=== PATIENT | male | born 1950 ===

== ENCOUNTER 2017-09-19 12:49 | Inpatient (IN) | payer MEDICARE ==
[2017-09-19] MEDS ORDERED: Sodium Chloride 0.9% 1,000 ML IV STA (13:28)
[2017-09-19] MEDS ORDERED: Iohexol 240 (50 ml) PO ONE (13:28)
[2017-09-19 13:48] LABS: BASO # 0.1 K/uL (0.0-0.2); BASO % 0.5 % (0.0-2.0); EOS % 0.1 % (0.0-4.0); HEMATOCRIT 42.3 % (35.0-51.0); LYMPH # 1.6 K/uL (1.0-4.3); LYMPH % 9.3 % (20.0-40.0); MEAN CORPUSCULAR HEMOGLOBIN 29.9 pg (27.0-31.0); MEAN CORPUSCULAR HGB CONC 32.5 g/dL (33.0-37.0); MEAN PLATELET VOLUME 8.2 fl (7.2-11.7); MONO # 0.6 K/uL (0.0-0.8); MONO % 3.6 % (0.0-10.0); NEUT # 14.7 K/uL (1.8-7.0); NEUT % 86.5 % (50.0-75.0); PLATELET COUNT 238 K/uL (130-400); RED CELL DISTRIBUTION WIDTH 14.5 % (11.5-14.5)
[2017-09-19] MEDS ORDERED: Iohexol 240 (50 ml) ONE (13:48)
--- NOTE | 2017-09-19 13:51 | ED PDOC ---
HPI: Abdomen Time Seen by Provider: 09/19/17 13:13 Chief Complaint (Nursing): Abdominal Pain Chief Complaint (Provider): Bloody stool History Per: Patient History/Exam Limitations: no limitations Onset/Duration Of Symptoms: Days (Yesterday) Current Symptoms Are (Timing): Still Present Additional Complaint(s): Several bloody stool movements. Abd pain diffuse. Black stool. Has light- headedness. No weakness, chest pain, dyspnea, fever. No back pain. No numbness, tingles. Past Medical History Reviewed: Nursing Documentation, Vital Signs Vital Signs: Last Vital Signs Temp 98.1 F 09/19/17 12:56 Pulse 119 H 09/19/17 12:56 Resp 16 09/19/17 12:56 BP 136/81 09/19/17 12:56 Pulse Ox 99 09/19/17 13:52 - Medical History PMH: HTN, Hypercholesterolemia - Surgical History Surgical History: No Surg Hx - Family History Family History: States: Unknown Family Hx - Social History Current smoker - smoking cessation education provided: No Alcohol: None Drugs: Denies - Home Medications Home Medications: Ambulatory Orders Medication Instructions Recorded Aspirin [Ecotrin] 81 mg PO DAILY 09/19/17 Atorvastatin [Lipitor] 10 mg PO HS 09/19/17 Lisinopril [Zestril] 10 mg PO DAILY 09/19/17 - Allergies Allergies/Adverse Reactions: Allergies Allergy/AdvReac Type Severity Reaction Status Date / Time No Known Allergies Allergy Verified 09/19/17 12:52 Review of Systems ROS Statement: Except As Marked, All Systems Reviewed And Found Negative Gastrointestinal: Positive for: Abdominal Pain, Melena, Hematochezia Physical Exam - Reviewed Nursing Documentation Reviewed: Yes Vital Signs Reviewed: Yes - Physical Exam Appears: Positive for: Non-toxic, No Acute Distress Head Exam: Positive for: ATRAUMATIC, NORMAL INSPECTION, NORMOCEPHALIC Skin: Positive for: Normal Color, Warm, DRY Eye Exam: Positive for: EOMI, Normal appearance, PERRL ENT: Positive for: Normal ENT Inspection Neck: Positive for: Normal, Painless ROM Cardiovascular/Chest: Positive for: Regular Rate, Rhythm Respiratory: Positive for: CNT, Normal Breath Sounds Gastrointestinal/Abdominal: Positive for: Normal Exam, Bowel Sounds, Soft. Negative for: Tenderness Back: Positive for: Normal Inspection. Negative for: L CVA Tenderness, R CVA Tenderness Extremity: Positive for: Normal ROM. Negative for: Tenderness, Pedal Edema Neurologic/Psych: Positive for: Alert, Oriented - Laboratory Results Result Diagrams: 09/19/17 13:37 09/19/17 13:37 Interpretation Of Abn Labs: hemocult pos and 17 wbc - ECG O2 Sat by Pulse Oximetry: 99 Pulse Ox Interpretation: Normal - Progress ED Course And Treament: 1454: Stable. Dr. Bruce to take over care for ct fu. Re-eval. Disposition - Clinical Impression Clinical Impression: Abdominal pain, Bloody stool - Patient ED Disposition Is Patient to be Admitted: Transfer of Care - Disposition Disposition Time: 14:58 Condition: FAIR Patient Signed Over To: Jailyn Bruce
[2017-09-19 14:15] LABS: ALB/GLOB RATIO 1.3 (1.0-2.1); BILIRUBIN,TOTAL 0.8 mg/dl (0.2-1.3); CALCIUM 9.1 mg/dL (8.4-10.2); CARBON DIOXIDE 19 mmol/L (22-30); CHLORIDE 106 mmol/L (98-107); GFR AFRICAN-AMERICAN > 60; GLUCOSE,RANDOM 130 mg/dL (75-110); SODIUM 137 mmol/l (132-148); TOTAL PROTEIN 7.5 G/DL (6.3-8.2)
[2017-09-19 14:16] LABS: ALKALINE PHOSPHATASE 61 U/L (38-126); ALT/SGPT 44 U/L (21-72); AST/SGOT 27 U/L (17-59); BLOOD UREA NITROGEN 34 mg/dl (9-20); POTASSIUM 4.4 MMOL/L (3.6-5.0)
[2017-09-19 14:34] LABS: PARTIAL THROMBOPLASTIN TIME 28.1 Seconds (25.6-37.1)
[2017-09-19 15:21] LABS: NEUTROPHIL 84 % (42-75); TOTAL CELLS COUNTED 100
[2017-09-19 15:23] LABS: LARGE PLATELETS PRESENT
[2017-09-19] MEDS ORDERED: Iohexol 300 100 ML IJ ONE (15:43)
--- NOTE | 2017-09-19 17:10 | CT ---
PROCEDURE: CT Abdomen and Pelvis with contrast HISTORY: Blood in stool, abdominal pain COMPARISON: None. TECHNIQUE: Contrast dose: 90 cc Omnipaque 300 Radiation dose: Total exam DLP = 782.12 mGy-cm. This CT exam was performed using one or more of the following dose reduction techniques: Automated exposure control, adjustment of the mA and/or kV according to patient size, and/or use of iterative reconstruction technique. FINDINGS: LOWER THORAX: 03/16/2011 CT thorax abdomen and pelvis LIVER: Unremarkable. No gross lesion or ductal dilatation. GALLBLADDER AND BILE DUCTS: Unremarkable. PANCREAS: Unremarkable. No gross lesion or ductal dilatation. SPLEEN: Unremarkable. Incidental finding(s): Small accessory splenule. ADRENALS: Unremarkable. No mass. KIDNEYS AND URETERS: Unremarkable. No hydronephrosis. No solid mass. VASCULATURE: Unremarkable. No aortic aneurysm. BOWEL: Thickening of the wall of the sigmoid and rectum consistent with colitis/proctitis. More proximally the descending colon, transverse and ascending colon are unaffected. APPENDIX: Normal appendix. PERITONEUM: Unremarkable. No free fluid. No free air. LYMPH NODES: Unremarkable. No enlarged lymph nodes. BLADDER: Unremarkable. REPRODUCTIVE: Unremarkable. BONES: No acute fracture. OTHER FINDINGS: Right-sided inguinal hernia containing a nondistended loops of small bowel. No evidence of incarceration or proximal obstruction. IMPRESSION: Findings consistent with colitis/prostatitis confined to the sigmoid and rectum. Additional benign and/or incidental findings described above.
--- NOTE | 2017-09-19 17:21 | ED PDOC ---
- Laboratory Results Result Diagrams: 09/19/17 13:37 09/19/17 13:37 - ECG O2 Sat by Pulse Oximetry: 99 Medical Decision Making Medical Decision Making: received patient from Dr. Leonardo who is here because of abdominal pain. Patient has hemoccult positive stool. WBC 17K. CT shows colitis. Will admit. Start Zosyn. Disposition Doctor Will See Patient In The: Hospital - Clinical Impression Clinical Impression: Abdominal pain, Bloody stool, Colitis - POA Present On Arrival: None - Disposition Disposition: Routine/Home Disposition Time: 17:21 Condition: FAIR
--- NOTE | 2017-09-19 19:24 | CP.PCM.HP ---
Addendum entered and electronically signed by Felecia Hall MD 09/20/17 07: 18: CBC noted: HG now 10.8. BP has improved after 1L bolus c/w IVF. Transfer to telemetry. Addendum entered and electronically signed by Felecia Hall MD 09/20/17 05: 25: I was called to evaluate the patient by RN at 05:06 due to suspected fall and hypotension. When I arrived the patient was in bed, in trendelenburg : BP 111 systolic, HR 90s He stood up to go to bathroom, had some dizziness but proceeded to go to restroom. He then felt like he was going to fall so he sat down on the floor. HE did not hit his head. No LOC. He did have another large bowel movement that he says was black, and had foul odor. While in bed he continues to complain of dizziness and mild headache, although dizziness has improved. He denies chest pain, palpitations or dyspnea. 1L bolus of NS ordered. Morning labs have been drawn, awaiting results. Fall precautions given to patient, ambulate with assistance only. Original Note: History of Present Illness - History of Present Illness History of Present Illness: 67 year old male with PMH of HTN presented to ED with complaint of dark stools that began yesterday. He had 3 BM yesterday, one today, dark and formed stool, No bright red blood per rectum. He had one bowel movement today, this morning. He felt chills, weakness and dizziness earlier in the day. AT present feels weak , but dizziness has resolved. He states his colonoscopy was done 3 years ago, in [place]. States he has had URI, congestion and cough, no sore throat, rhinorrhea or ear pain. He was able to tolerate meal earlier today, denies any nausea or vomiting. Has reflux that has been on and off for past few months. Denies hx of HLD, but was placed on statin prophylactically. PMD: Dr. Saldana, last clinic appt. 09/16/17 PMH: HTN, mycosis fungoides-s/p treatment years ago Medications: Aspirin 81mg, Lisinopril 10mg, Atorvastatin 10mg Allergies: NKDA Surgical Hx: umbilical hernia repair Social : no tobacco, etoh, illicit drug use Family Hx: Mother - CVA aged 90, father alive 93 y/o, HTN, renal disease Patient is Full Code. Patient would like his brother to be contacted for medical decisions: Jose Manuel Caballero: [phone], lives in [facility]- opthalmologist. Daughter: Shagufta Sun : [phone], lives in [place]. Cousin: Ana Cristina Dennison "[phone] lives in [place]. Present on Admission - Present on Admission Any Indicators Present on Admission: No Review of Systems - Constitutional Constitutional: Chills, Weakness. absent: Anorexia, Fever, Headache - EENT Eyes: absent: Change in Vision Nose/Mouth/Throat: Nasal Congestion. absent: Nasal Discharge, Sore Throat - Cardiovascular Cardiovascular: absent: Chest Pain, Dyspnea, Palpitations, Pedal Edema, Syncope - Respiratory Respiratory: absent: Cough, Dyspnea - Gastrointestinal Gastrointestinal: Abdominal Pain, Change in Stool Character. absent: Constipation, Diarrhea, Fecal Incontinence, Nausea, Vomiting - Genitourinary Genitourinary: absent: Change in Urinary Stream, Dysuria, Hematuria - Musculoskeletal Musculoskeletal: absent: Back Pain - Integumentary Integumentary: absent: Rash - Neurological Neurological: Weakness. absent: Numbness, Tingling Past Patient History - Infectious Disease Hx of Infectious Diseases: None - Past Social History Smoking Status: Never Smoked Alcohol: None Drugs: Denies - CARDIAC Hx Hypercholesterolemia: No Hx Hypertension: Yes - PSYCHIATRIC Hx Substance Use: No - SURGICAL HISTORY Hx Surgeries: No - ANESTHESIA Hx Anesthesia: No Meds Allergies/Adverse Reactions: Allergies Allergy/AdvReac Type Severity Reaction Status Date / Time No Known Allergies Allergy Verified 09/19/17 12:52 Physical Exam - Constitutional Appears: Non-toxic, No Acute Distress - Head Exam Head Exam: ATRAUMATIC, NORMAL INSPECTION, NORMOCEPHALIC - Eye Exam Eye Exam: EOMI, Normal appearance, PERRL - ENT Exam ENT Exam: Mucous Membranes Moist, Normal Exam, TM's Normal Bilaterally - Neck Exam Neck exam: Positive for: Full Rom, Normal Inspection - Respiratory Exam Respiratory Exam: Clear to Auscultation Bilateral, NORMAL BREATHING PATTERN. absent: Chest Wall Tenderness, Decreased Breath Sounds, Rales, Rhonchi, Wheezes , Respiratory Distress - Cardiovascular Exam Cardiovascular Exam: REGULAR RHYTHM, +S1, +S2. absent: Bradycardia, Tachycardia , Diastolic murmur, Systolic Murmur - GI/Abdominal Exam GI & Abdominal Exam: Diminished Bowel Sounds, Soft. absent: Distended, Guarding , Mass, Rigid, Tenderness - Rectal Exam Rectal Exam: Deferred - Extremities Exam Extremities exam: Positive for: normal inspection. Negative for: pedal edema - Neurological Exam Neurological exam: Alert, CN II-XII Intact, Normal Gait, Oriented x3 - Psychiatric Exam Psychiatric exam: Normal Affect, Normal Mood - Skin Skin Exam: Dry, Intact, Normal Color, Warm Results - Vital Signs Recent Vital Signs: Last Vital Signs Temp 99.5 F 09/19/17 17:40 Pulse 110 H 09/19/17 17:40 Resp 18 09/19/17 17:40 BP 136/75 09/19/17 17:40 Pulse Ox 99 09/19/17 17:40 - Labs Result Diagrams: 09/19/17 13:37 09/19/17 13:37 Labs: Laboratory Results - last 24 hr 09/19/17 09/19/17 09/19/17 13:37 13:37 13:37 WBC 17.0 H D RBC 4.60 Hgb 13.7 Hct 42.3 MCV 92.0 MCH 29.9 MCHC 32.5 L RDW 14.5 Plt Count 238 MPV 8.2 Neut % (Auto) 86.5 H Lymph % (Auto) 9.3 L [place] % (Auto) 3.6 Eos % (Auto) 0.1 Baso % (Auto) 0.5 Neut # 14.7 H Lymph # 1.6 [place] # 0.6 Eos # 0.0 Baso # 0.1 Neutrophils % (Manual) 84 H Lymphocytes % (Manual) 12 L Monocytes % (Manual) 4 Platelet Estimate Normal Large Platelets Present Poikilocytosis (manual Slight Anisocytosis (manual) Slight Microcytosis (manual) Slight Ovalocytes Slight [place] Cells Slight PT INR APTT Sodium 137 Potassium 4.4 Chloride 106 Carbon Dioxide 19 L Anion Gap 16 BUN 34 H Creatinine 1.0 Est GFR ( Amer) > 60 Est GFR (Non-Af Amer) > 60 Random Glucose 130 H Calcium 9.1 Total Bilirubin 0.8 AST 27 ALT 44 Alkaline Phosphatase 61 Total Protein 7.5 Albumin 4.2 Globulin 3.3 Albumin/Globulin Ratio 1.3 Stool Occult Blood Blood Type O POSITIVE Antibody Screen Negative BBK History Checked No verified bt 09/19/17 09/19/17 13:37 13:43 WBC RBC Hgb Hct MCV MCH MCHC RDW Plt Count MPV Neut % (Auto) Lymph % (Auto) [place] % (Auto) Eos % (Auto) Baso % (Auto) Neut # Lymph # [place] # Eos # Baso # Neutrophils % (Manual) Lymphocytes % (Manual) Monocytes % (Manual) Platelet Estimate Large Platelets Poikilocytosis (manual Anisocytosis (manual) Microcytosis (manual) Ovalocytes [place] Cells PT 12.8 INR 1.2 APTT 28.1 Sodium Potassium Chloride Carbon Dioxide Anion Gap BUN Creatinine Est GFR ( Amer) Est GFR (Non-Af Amer) Random Glucose Calcium Total Bilirubin AST ALT Alkaline Phosphatase Total Protein Albumin Globulin Albumin/Globulin Ratio Stool Occult Blood Positive H Blood Type Antibody Screen BBK History Checked - Imaging and Cardiology CT scan - abdomen Status: Report reviewed by me Additional comment: CT A/P: FINDINGS: LOWER THORAX: 03/16/2011 CT thorax abdomen and pelvis LIVER: Unremarkable. No gross lesion or ductal dilatation. GALLBLADDER AND BILE DUCTS: Unremarkable. PANCREAS: Unremarkable. No gross lesion or ductal dilatation. SPLEEN: Unremarkable. Incidental finding(s): Small accessory splenule. ADRENALS: Unremarkable. No mass. KIDNEYS AND URETERS: Unremarkable. No hydronephrosis. No solid mass. VASCULATURE: Unremarkable. No aortic aneurysm. BOWEL: Thickening of the wall of the sigmoid and rectum consistent with colitis/ proctitis. More proximally the descending colon, transverse and ascending colon are unaffected. APPENDIX: Normal appendix. PERITONEUM: Unremarkable. No free fluid. No free air. LYMPH NODES: Unremarkable. No enlarged lymph nodes. BLADDER: Unremarkable. REPRODUCTIVE: Unremarkable. BONES: No acute fracture. OTHER FINDINGS: Right-sided inguinal hernia containing a nondistended loops of small bowel. No evidence of incarceration or proximal obstruction. IMPRESSION: Findings consistent with colitis/prostatitis confined to the sigmoid and rectum. Additional benign and/or incidental findings described above. Assessment & Plan (1) Colitis Assessment and Plan: 67 year old male with hx of HTN, presented with c/o dark bowel movements, abdominal pain and weakness admitted for colitis w/ +FOBT,. Pt w/ possible upper GI bleed. Pt is hemodynamically stable. He is afebrile, BP is WNL, with tachycardia, HR 119. Tachycardia likely 2' to dehydration, given his Hg 13.7, not 2' to anemia or pain. Will repeat CBC in AM Start clear liquid diet, c/w IVF Start Cipro/Flagyl, bacid GI consult Status: Acute (2) HTN (hypertension) Assessment and Plan: controlled w/ lisinopril 10mg Status: Acute (3) DVT prophylaxis Assessment and Plan: scds due to +FOBT Status: Acute
[2017-09-19] MEDS ORDERED: Lactated Ringer's 1,000 ML IV SCH (19:45)
[2017-09-19] MEDS ORDERED: metroNIDAZOLE 500mg/100ml NS 100 ML IVPB ONE (20:43)
[2017-09-19] MEDS: metroNIDAZOLE 500mg/100ml NS 100 ML IVPB SCH (20:44)
[2017-09-19] MEDS: Lactobacillus Acidophilus 500 MU Cap PO SCH (21:26)
[2017-09-19] MEDS: Ciprofloxacin 400mg/200ml D5W 400 MG/200 ML BAG IVPB SCH (22:08)
[2017-09-20] MEDS: metroNIDAZOLE 500mg/100ml NS 100 ML IVPB SCH ×3 (04:05→20:30)
[2017-09-20] MEDS ORDERED: Sodium Chloride 0.9% 1,000 ML IV SCH (05:30)
[2017-09-20 06:57] LABS: BASO # 0.1 K/uL (0.0-0.2); BASO % 0.5 % (0.0-2.0); EOS # 0.1 K/uL (0.0-0.7); EOS % 0.6 % (0.0-4.0); HEMATOCRIT 31.1 % (35.0-51.0); LYMPH # 4.2 K/uL (1.0-4.3); MEAN CELL VOLUME 90.1 fl (80.0-94.0); MEAN CORPUSCULAR HEMOGLOBIN 31.3 pg (27.0-31.0); MEAN CORPUSCULAR HGB CONC 34.7 g/dL (33.0-37.0); MEAN PLATELET VOLUME 8.8 fl (7.2-11.7); MONO # 0.9 K/uL (0.0-0.8); MONO % 7.4 % (0.0-10.0); NEUT # 6.8 K/uL (1.8-7.0); NEUT % 56.5 % (50.0-75.0); RED CELL DISTRIBUTION WIDTH 14.1 % (11.5-14.5)
[2017-09-20 08:04] LABS: BLOOD UREA NITROGEN 31 mg/dl (9-20); CALCIUM 8.2 mg/dL (8.4-10.2); CARBON DIOXIDE 24 mmol/L (22-30); CHLORIDE 106 mmol/L (98-107); GFR AFRICAN-AMERICAN > 60; GLUCOSE,RANDOM 96 mg/dL (75-110); POTASSIUM 3.5 MMOL/L (3.6-5.0); SODIUM 139 mmol/l (132-148)
[2017-09-20] MEDS: Ciprofloxacin 400mg/200ml D5W 400 MG/200 ML BAG IVPB SCH ×2 (09:16→21:44)
[2017-09-20] MEDS: Lactobacillus Acidophilus 500 MU Cap PO SCH ×2 (09:17→16:03)
--- NOTE | 2017-09-20 11:18 | CP.PCM.CON ---
<Mena Merchant - Last Filed: 09/20/17 11:14> History of Present Illness - History of Present Illness History of Present Illness: Gastroenterology Fellow/PGY5 Consult Note 67 year old male with history of Hypertension presenting with abdominal pain and diarrhea. Patient notes bilateral lower abdominal pain and daily three episodes of dark watery stools. Associated subjective fever. Denies nausea, vomiting, hematemesis, constipation, melena, hematochezia, recent travel, recent antibiotics, or sick contacts. Prior colonoscopy three years ago endorsed to be normal. Family- denies stomach cancer, colon cancer Social- denies tobacco, alcohol, illicit drug use Surgery- umbilical hernia repair Review of Systems - Review of Systems Review of Systems: 12-point review of systems negative except for as above Past Patient History - Infectious Disease Hx of Infectious Diseases: None - Past Medical History & Family History Past Medical History?: Yes - Past Social History Smoking Status: Never Smoked Alcohol: None Drugs: Denies - CARDIAC Hx Hypercholesterolemia: No Hx Hypertension: Yes - PULMONARY Hx Respiratory Disorders: No - NEUROLOGICAL Hx Neurological Disorder: No - HEENT Hx HEENT Problems: No - RENAL Hx Chronic Kidney Disease: No - ENDOCRINE/METABOLIC Hx Endocrine Disorders: No - HEMATOLOGICAL/ONCOLOGICAL Hx Blood Disorders: No Hx AIDS: No Hx Human Immunodeficiency Virus (HIV): No - INTEGUMENTARY Hx Dermatological Problems: No - MUSCULOSKELETAL/RHEUMATOLOGICAL Hx Musculoskeletal Disorders: No Hx Falls: No - GASTROINTESTINAL Hx Gastrointestinal Disorders: No - GENITOURINARY/GYNECOLOGICAL Hx Genitourinary Disorders: No - PSYCHIATRIC Hx Substance Use: No - SURGICAL HISTORY Hx Surgeries: No - ANESTHESIA Hx Anesthesia: No Meds Allergies/Adverse Reactions: Allergies Allergy/AdvReac Type Severity Reaction Status Date / Time No Known Allergies Allergy Verified 09/19/17 12:52 - Medications Medications: Current Medications Atorvastatin Calcium (Lipitor) 10 mg PO HS JESSIE Ciprofloxacin (Cipro 400mg/200ml Dsw) 400 mg in 200 mls @ 200 mls/hr IVPB Q12 JESSIE PRN Reason: Protocol Last Admin: 09/20/17 09:16 Dose: 200 mls/hr Metronidazole (Flagyl 500mg/100ml Ns) 100 mls @ 100 mls/hr IVPB Q8H JESSIE PRN Reason: Protocol Last Admin: 09/20/17 04:05 Dose: 100 mls/hr Potassium Chloride 20 meq/ (Sodium Chloride) 1,010 mls @ 125 mls/hr IV .Q8H5M [facility] Stop: 09/21/17 05:21 Last Admin: 09/20/17 06:34 Dose: 125 mls/hr Lactobacillus Acidophilus (Bacid Acidophilus) 1 cap PO BID [facility] Last Admin: 09/20/17 09:17 Dose: 1 cap Lisinopril (Zestril) 10 mg PO DAILY [facility] Pantoprazole Sodium (Protonix Inj) 40 mg IVP Q12 [facility] Last Admin: 09/20/17 09:19 Dose: 40 mg Physical Exam - Constitutional Appears: Non-toxic, No Acute Distress - Head Exam Head Exam: ATRAUMATIC, NORMOCEPHALIC - Eye Exam Eye Exam: EOMI, PERRL Pupil Exam: PERRL. absent: Miosis, Mydriatic - ENT Exam ENT Exam: Mucous Membranes Moist, Normal Oropharynx - Neck Exam Neck exam: Positive for: Full Rom, Normal Inspection - Respiratory Exam Respiratory Exam: Clear to Auscultation Bilateral. absent: Rales, Rhonchi, Wheezes - Cardiovascular Exam Cardiovascular Exam: RRR, +S1, +S2. absent: Gallop, Rubs - GI/Abdominal Exam GI & Abdominal Exam: Normal Bowel Sounds, Soft, Tenderness. absent: Distended, Firm, Guarding, Organomegaly, Rebound, Rigid Additional comments: mid to LLQ tenderness to palpation - Extremities Exam Extremities exam: Positive for: normal inspection. Negative for: pedal edema - Neurological Exam Neurological exam: Alert - Psychiatric Exam Psychiatric exam: Normal Affect, Normal Mood - Skin Skin Exam: Dry, Intact, Normal Color, Warm Results - Vital Signs Recent Vital Signs: Last Vital Signs Temp 97.6 F 09/20/17 07:56 Pulse 95 H 09/20/17 07:56 Resp 20 09/20/17 07:56 BP 121/91 H 09/20/17 07:56 Pulse Ox 97 09/20/17 07:56 - Labs Result Diagrams: 09/20/17 05:30 09/20/17 05:30 Labs: Laboratory Results - last 24 hr 09/19/17 09/19/17 09/19/17 13:37 13:37 13:37 WBC 17.0 H D RBC 4.60 Hgb 13.7 Hct 42.3 MCV 92.0 MCH 29.9 MCHC 32.5 L RDW 14.5 Plt Count 238 MPV 8.2 Neut % (Auto) 86.5 H Lymph % (Auto) 9.3 L [place] % (Auto) 3.6 Eos % (Auto) 0.1 Baso % (Auto) 0.5 Neut # 14.7 H Lymph # 1.6 [place]ade # 0.6 Eos # 0.0 Baso # 0.1 Neutrophils % (Manual) 84 H Lymphocytes % (Manual) 12 L Monocytes % (Manual) 4 Platelet Estimate Normal Large Platelets Present Poikilocytosis (manual Slight Anisocytosis (manual) Slight Microcytosis (manual) Slight Ovalocytes Slight Francoise Cells Slight PT INR APTT Sodium 137 Potassium 4.4 Chloride 106 Carbon Dioxide 19 L Anion Gap 16 BUN 34 H Creatinine 1.0 Est GFR ( Amer) > 60 Est GFR (Non-Af Amer) > 60 Random Glucose 130 H Calcium 9.1 Total Bilirubin 0.8 AST 27 ALT 44 Alkaline Phosphatase 61 Total Protein 7.5 Albumin 4.2 Globulin 3.3 Albumin/Globulin Ratio 1.3 Stool Occult Blood Blood Type O POSITIVE Antibody Screen Negative Crossmatch See Detail BBK History Checked No verified bt 09/19/17 09/19/17 09/20/17 13:37 13:43 05:30 WBC 12.0 H RBC 3.45 L Hgb 10.8 L D Hct 31.1 L MCV 90.1 MCH 31.3 H MCHC 34.7 RDW 14.1 Plt Count 235 MPV 8.8 Neut % (Auto) 56.5 Lymph % (Auto) 35.0 [place] % (Auto) 7.4 Eos % (Auto) 0.6 Baso % (Auto) 0.5 Neut # 6.8 Lymph # 4.2 [place] # 0.9 H Eos # 0.1 Baso # 0.1 Neutrophils % (Manual) Lymphocytes % (Manual) Monocytes % (Manual) Platelet Estimate Large Platelets Poikilocytosis (manual Anisocytosis (manual) Microcytosis (manual) Ovalocytes Francoise Cells PT 12.8 INR 1.2 APTT 28.1 Sodium Potassium Chloride Carbon Dioxide Anion Gap BUN Creatinine Est GFR ( Amer) Est GFR (Non-Af Amer) Random Glucose Calcium Total Bilirubin AST ALT Alkaline Phosphatase Total Protein Albumin Globulin Albumin/Globulin Ratio Stool Occult Blood Positive H Blood Type Antibody Screen Crossmatch BBK History Checked 09/20/17 05:30 WBC RBC Hgb Hct MCV MCH MCHC RDW Plt Count MPV Neut % (Auto) Lymph % (Auto) [place] % (Auto) Eos % (Auto) Baso % (Auto) Neut # Lymph # [place] # Eos # Baso # Neutrophils % (Manual) Lymphocytes % (Manual) Monocytes % (Manual) Platelet Estimate Large Platelets Poikilocytosis (manual Anisocytosis (manual) Microcytosis (manual) Ovalocytes [place] Cells PT INR APTT Sodium 139 Potassium 3.5 L Chloride 106 Carbon Dioxide 24 Anion Gap 13 BUN 31 H Creatinine 0.9 Est GFR ( Amer) > 60 Est GFR (Non-Af Amer) > 60 Random Glucose 96 Calcium 8.2 L Total Bilirubin AST ALT Alkaline Phosphatase Total Protein Albumin Globulin Albumin/Globulin Ratio Stool Occult Blood Blood Type Antibody Screen Crossmatch BBK History Checked Assessment & Plan - Assessment and Plan (Free Text) Assessment: 67 year old male with history of Hypertension and Hyperlipidemia presenting with abdominal pain and diarrhea. Active treatment of rectosigmoid colitis. Prior colonoscopy three years ago endorsed to be normal. Plan: >DDx: infectious, ischemic >order stool workup to rule out infectious colitis >continue cipro/flagyl >lightheaded/dizzy- GI fluid loss >continue IVFs >H/H -component hemodilutional - 3 L bolus >continue to monitor >clear liquid diet >will benefit from colonoscopy in 6-8 weeks to evaluate for underlying pathology <Bj Davis - Last Filed: 09/20/17 15:19> Meds - Medications Medications: Current Medications Atorvastatin Calcium (Lipitor) 10 mg PO HS JESSIE Ciprofloxacin (Cipro 400mg/200ml Dsw) 400 mg in 200 mls @ 200 mls/hr IVPB Q12 JESSIE PRN Reason: Protocol Last Admin: 09/20/17 09:16 Dose: 200 mls/hr Metronidazole (Flagyl 500mg/100ml Ns) 100 mls @ 100 mls/hr IVPB Q8H JESSIE PRN Reason: Protocol Last Admin: 09/20/17 04:05 Dose: 100 mls/hr Potassium Chloride 20 meq/ (Sodium Chloride) 1,010 mls @ 125 mls/hr IV .Q8H5M [facility] Stop: 09/21/17 05:21 Last Admin: 09/20/17 06:34 Dose: 125 mls/hr Lactobacillus Acidophilus (Bacid Acidophilus) 1 cap PO BID [facility] Last Admin: 09/20/17 09:17 Dose: 1 cap Lisinopril (Zestril) 10 mg PO DAILY [facility] Pantoprazole Sodium (Protonix Inj) 40 mg IVP Q12 JESSIE Last Admin: 09/20/17 09:19 Dose: 40 mg Results - Vital Signs Recent Vital Signs: Last Vital Signs Temp 98.4 F 09/20/17 12:00 Pulse 113 H 09/20/17 14:00 Resp 30 H 09/20/17 14:00 BP 123/82 09/20/17 14:00 Pulse Ox 99 09/20/17 14:00 - Labs Result Diagrams: 09/20/17 05:30 09/20/17 05:30 Labs: Laboratory Results - last 24 hr 09/19/17 09/19/17 09/20/17 13:37 13:37 05:30 WBC 12.0 H RBC 3.45 L Hgb 10.8 L D Hct 31.1 L MCV 90.1 MCH 31.3 H MCHC 34.7 RDW 14.1 Plt Count 235 MPV 8.8 Neut % (Auto) 56.5 Lymph % (Auto) 35.0 [place] % (Auto) 7.4 Eos % (Auto) 0.6 Baso % (Auto) 0.5 Neut # 6.8 Lymph # 4.2 [place] # 0.9 H Eos # 0.1 Baso # 0.1 Neutrophils % (Manual) 84 H Lymphocytes % (Manual) 12 L Monocytes % (Manual) 4 Platelet Estimate Normal Large Platelets Present Poikilocytosis (manual Slight Anisocytosis (manual) Slight Microcytosis (manual) Slight Ovalocytes Slight Francoise Cells Slight Sodium Potassium Chloride Carbon Dioxide Anion Gap BUN Creatinine Est GFR ( Amer) Est GFR (Non-Af Amer) Random Glucose Calcium Blood Type O POSITIVE Antibody Screen Negative Crossmatch See Detail BBK History Checked No verified bt 09/20/17 05:30 WBC RBC Hgb Hct MCV MCH MCHC RDW Plt Count MPV Neut % (Auto) Lymph % (Auto) [place] % (Auto) Eos % (Auto) Baso % (Auto) Neut # Lymph # [place] # Eos # Baso # Neutrophils % (Manual) Lymphocytes % (Manual) Monocytes % (Manual) Platelet Estimate Large Platelets Poikilocytosis (manual Anisocytosis (manual) Microcytosis (manual) Ovalocytes [place] Cells Sodium 139 Potassium 3.5 L Chloride 106 Carbon Dioxide 24 Anion Gap 13 BUN 31 H Creatinine 0.9 Est GFR ( Amer) > 60 Est GFR (Non-Af Amer) > 60 Random Glucose 96 Calcium 8.2 L Blood Type Antibody Screen Crossmatch BBK History Checked Attending/Attestation - Attestation I have personally seen and examined this patient.: Yes I have fully participated in the care of the patient.: Yes I have reviewed all pertinent clinical information: Yes Notes (Text): 09/20/17 15:17 67 year old male with history of HTN, HLD admitted with bloody diarrhea and abdominal pain. 1. Left sided colitis Plan: -infectious vs ischemic, less likely UC -reocmmend cipro/flagyl x 10-14 days -recommend stool eval for infectious colitis including culture, c. dif, and o&p -monitor improved -CLD today -IV hydration and supportive care
--- NOTE | 2017-09-20 11:51 | CP.PCM.PN ---
Subjective - Date & Time of Evaluation Date of Evaluation: 09/20/17 Time of Evaluation: 08:30 - Subjective Subjective: 67 year old male with hx of HTN, presented with c/o dark bowel movements, abdominal pain and weakness admitted for colitis w/ +FOBT. Seen and examined by bedside. Overnight states dizziness while using the bathroom overnight with one more tarry BM which was formed. Given IVF by night resident. Currently states feeling better, mild dizziness upon ambulation, no chest pain, SOB, abd pain, dysarthria, focal weakness. Objective - Vital Signs/Intake and Output Vital Signs (last 24 hours): Temp Pulse Resp BP Pulse Ox 97.6 F 95 H 20 121/91 H 97 09/20/17 07:56 09/20/17 07:56 09/20/17 07:56 09/20/17 07:56 09/20/17 07:56 - Medications Medications: Current Medications Atorvastatin Calcium (Lipitor) 10 mg PO HS [facility] Ciprofloxacin (Cipro 400mg/200ml Dsw) 400 mg in 200 mls @ 200 mls/hr IVPB Q12 JESSIE PRN Reason: Protocol Last Admin: 09/20/17 09:16 Dose: 200 mls/hr Metronidazole (Flagyl 500mg/100ml Ns) 100 mls @ 100 mls/hr IVPB Q8H JESSIE PRN Reason: Protocol Last Admin: 09/20/17 04:05 Dose: 100 mls/hr Potassium Chloride 20 meq/ (Sodium Chloride) 1,010 mls @ 125 mls/hr IV .Q8H5M [facility] Stop: 09/21/17 05:21 Last Admin: 09/20/17 06:34 Dose: 125 mls/hr Lactobacillus Acidophilus (Bacid Acidophilus) 1 cap PO BID [facility] Last Admin: 09/20/17 09:17 Dose: 1 cap Lisinopril (Zestril) 10 mg PO DAILY [facility] Pantoprazole Sodium (Protonix Inj) 40 mg IVP Q12 [facility] Last Admin: 09/20/17 09:19 Dose: 40 mg - Labs Labs: 09/20/17 05:30 09/20/17 05:30 PT 12.8 Seconds (9.8-13.1) 09/19/17 13:37 INR 1.2 (0.9-1.2) 09/19/17 13:37 APTT 28.1 Seconds (25.6-37.1) 09/19/17 13:37 - Constitutional Appears: No Acute Distress - Head Exam Head Exam: ATRAUMATIC - Eye Exam Eye Exam: EOMI Pupil Exam: PERRL - ENT Exam ENT Exam: Mucous Membranes Moist - Neck Exam Neck Exam: Full ROM - Respiratory Exam Respiratory Exam: Clear to Ausculation Bilateral - Cardiovascular Exam Cardiovascular Exam: +S1, +S2 - GI/Abdominal Exam GI & Abdominal Exam: Soft, Tenderness (lower abdominal tenderness to palpation, non localized) - Extremities Exam Extremities Exam: Full ROM - Neurological Exam Neurological Exam: Alert, Awake, Oriented x3 - Psychiatric Exam Psychiatric exam: Normal Affect, Normal Mood - Skin Skin Exam: Dry, Normal Color, Warm Assessment and Plan - Assessment and Plan (Free Text) Plan: Colitis 67 year old male with hx of HTN, presented with c/o dark bowel movements, abdominal pain and weakness admitted for colitis w/ +FOBT,. Pt w/ possible upper GI bleed. Pt is hemodynamically stable. He is afebrile, BP is WNL, with tachycardia, HR 119. Tachycardia likely 2' to dehydration, given his Hg 13.7, not 2' to anemia or pain. AM CBC 10.8 clear liquid diet, c/w IVF c/w Cipro/Flagyl, bacid GI consult: evaluated this AM, c/w abx for colitis, colonoscopy as outpatient HTN (hypertension) controlled w/ lisinopril 10mg DVT prophylaxis scds due to +FOBT
[2017-09-20 16:29] LABS: BASO # 0.1 K/uL (0.0-0.2); BASO % 0.5 % (0.0-2.0); EOS % 0.1 % (0.0-4.0); HEMATOCRIT 34.1 % (35.0-51.0); LYMPH # 2.6 K/uL (1.0-4.3); LYMPH % 24.2 % (20.0-40.0); MEAN CORPUSCULAR HEMOGLOBIN 30.2 pg (27.0-31.0); MEAN CORPUSCULAR HGB CONC 33.6 g/dL (33.0-37.0); MONO # 0.8 K/uL (0.0-0.8); MONO % 7.2 % (0.0-10.0); NEUT # 7.2 K/uL (1.8-7.0); RED CELL DISTRIBUTION WIDTH 14.3 % (11.5-14.5); WHITE BLOOD COUNT 10.6 K/uL (4.8-10.8)
[2017-09-20 16:40] LABS: C DIFF TOXIN A B NEGATIVE (NEGATIVE)
[2017-09-20 21:58] LABS: FECAL LEUKOCYTES NEGATIVE (NEGATIVE)
[2017-09-21] MEDS: metroNIDAZOLE 500mg/100ml NS 100 ML IVPB SCH ×2 (06:00→11:42)
[2017-09-21 07:18] LABS: HEMATOCRIT 32.2 % (35.0-51.0); MEAN CELL VOLUME 89.8 fl (80.0-94.0); MEAN CORPUSCULAR HEMOGLOBIN 31.1 pg (27.0-31.0); MEAN CORPUSCULAR HGB CONC 34.6 g/dL (33.0-37.0); RED CELL DISTRIBUTION WIDTH 14.5 % (11.5-14.5); WHITE BLOOD COUNT 7.4 K/uL (4.8-10.8)
[2017-09-21 07:35] LABS: ALB/GLOB RATIO 1.2 (1.0-2.1); ALKALINE PHOSPHATASE 40 U/L (38-126); ALT/SGPT 35 U/L (21-72); AST/SGOT 22 U/L (17-59); BLOOD UREA NITROGEN 15 mg/dl (9-20); CALCIUM 8.8 mg/dL (8.4-10.2); CARBON DIOXIDE 26 mmol/L (22-30); CHLORIDE 109 mmol/L (98-107); GFR AFRICAN-AMERICAN > 60; GLUCOSE,RANDOM 89 mg/dL (75-110); POTASSIUM 4.4 MMOL/L (3.6-5.0); SODIUM 142 mmol/l (132-148)
--- NOTE | 2017-09-21 08:06 | CP.PCM.PN ---
<Mena Merchant - Last Filed: 09/21/17 08:02> Subjective - Date & Time of Evaluation Date of Evaluation: 09/21/17 Time of Evaluation: 08:02 - Subjective Subjective: Gastroenterology Fellow/PGY5 Progress Note Patient feels well this morning. Tolerating liquid diet. Notes 4-5 episodes of diarrhea yesterday. One semi- formed stool this morning. A 12-point review of systems negative except for as above. Objective - Vital Signs/Intake and Output Vital Signs (last 24 hours): Temp Pulse Resp BP Pulse Ox 98.5 F 107 H 20 122/85 99 09/21/17 07:53 09/21/17 07:53 09/21/17 07:53 09/21/17 07:53 09/21/17 07:53 Intake and Output: 09/21/17 09/21/17 06:59 18:59 Intake Total 1600 Balance 1600 - Medications Medications: Current Medications Atorvastatin Calcium (Lipitor) 10 mg PO HS JESSIE Ciprofloxacin (Cipro 400mg/200ml Dsw) 400 mg in 200 mls @ 200 mls/hr IVPB Q12 JESSIE PRN Reason: Protocol Last Admin: 09/20/17 21:44 Dose: 200 mls/hr Metronidazole (Flagyl 500mg/100ml Ns) 100 mls @ 100 mls/hr IVPB Q8H JESSIE PRN Reason: Protocol Last Admin: 09/21/17 06:00 Dose: 100 mls/hr Lactobacillus Acidophilus (Bacid Acidophilus) 1 cap PO BID [facility] Last Admin: 09/20/17 16:03 Dose: 1 cap Lisinopril (Zestril) 10 mg PO DAILY [facility] Pantoprazole Sodium (Protonix Inj) 40 mg IVP Q12 [facility] Last Admin: 09/20/17 20:32 Dose: 40 mg - Labs Labs: 09/21/17 07:08 09/21/17 07:08 PT 12.8 Seconds (9.8-13.1) 09/19/17 13:37 INR 1.2 (0.9-1.2) 09/19/17 13:37 APTT 28.1 Seconds (25.6-37.1) 09/19/17 13:37 - Constitutional Appears: Non-toxic, No Acute Distress - Head Exam Head Exam: ATRAUMATIC, NORMOCEPHALIC - Eye Exam Eye Exam: EOMI, PERRL. absent: Scleral icterus Pupil Exam: PERRL. absent: Miosis, Mydriatic - ENT Exam ENT Exam: Mucous Membranes Moist, Normal Oropharynx - Neck Exam Neck Exam: Full ROM, Normal Inspection - Respiratory Exam Respiratory Exam: Clear to Ausculation Bilateral. absent: Rales, Rhonchi, Wheezes - Cardiovascular Exam Cardiovascular Exam: RRR, +S1, +S2. absent: Gallop, Rubs - GI/Abdominal Exam GI & Abdominal Exam: Soft, Normal Bowel Sounds. absent: Distended, Firm, Guarding, Rigid, Tenderness, Organomegaly, Rebound - Extremities Exam Extremities Exam: Normal Inspection. absent: Pedal Edema - Neurological Exam Neurological Exam: Alert, Awake - Psychiatric Exam Psychiatric exam: Normal Affect, Normal Mood - Skin Skin Exam: Dry, Intact, Normal Color, Warm Assessment and Plan - Assessment and Plan (Free Text) Assessment: 67 year old male with history of Hypertension and Hyperlipidemia presenting with abdominal pain and diarrhea. Active treatment of rectosigmoid colitis. Prior colonoscopy three years ago endorsed to be normal. Plan: >negative Cdiff, O&P, fecal leukocytes >pending stool culture >continue cipro/flagyl to complete a 10-14 day course >H/H stable >cpain resolved >advanced to heart healthy diet >will benefit from colonoscopy in 6-8 weeks to evaluate for underlying pathology <Bj Davis - Last Filed: 09/21/17 11:07> Objective - Vital Signs/Intake and Output Vital Signs (last 24 hours): Temp Pulse Resp BP Pulse Ox 98.5 F 107 H 20 122/85 99 09/21/17 07:53 09/21/17 07:53 09/21/17 07:53 09/21/17 07:53 09/21/17 07:53 Intake and Output: 09/21/17 09/21/17 06:59 18:59 Intake Total 1600 250 Balance 1600 250 - Medications Medications: Current Medications Atorvastatin Calcium (Lipitor) 10 mg PO HS [facility] Ciprofloxacin (Cipro 400mg/200ml Dsw) 400 mg in 200 mls @ 200 mls/hr IVPB Q12 JESSIE PRN Reason: Protocol Last Admin: 09/21/17 08:26 Dose: 200 mls/hr Metronidazole (Flagyl 500mg/100ml Ns) 100 mls @ 100 mls/hr IVPB Q8H JESSIE PRN Reason: Protocol Last Admin: 09/21/17 06:00 Dose: 100 mls/hr Lactobacillus Acidophilus (Bacid Acidophilus) 1 cap PO BID [facility] Last Admin: 09/21/17 08:26 Dose: 1 cap Lisinopril (Zestril) 10 mg PO DAILY [facility] Pantoprazole Sodium (Protonix Inj) 40 mg IVP Q12 [facility] Last Admin: 09/21/17 08:27 Dose: 40 mg - Labs Labs: 09/21/17 07:08 09/21/17 07:08 PT 12.8 Seconds (9.8-13.1) 09/19/17 13:37 INR 1.2 (0.9-1.2) 09/19/17 13:37 APTT 28.1 Seconds (25.6-37.1) 09/19/17 13:37 Attending/Attestation - Attestation I have personally seen and examined this patient.: Yes I have fully participated in the care of the patient.: Yes I have reviewed all pertinent clinical information, including history, physical exam and plan: Yes Notes (Text): 09/21/17 11:07 67 year old male with history of HTN, HLD admitted with bloody diarrhea and abdominal pain. 1. Left sided colitis Plan: -infectious vs ischemic, less likely UC -reocmmend cipro/flagyl x 10-14 days -await final studies -hgb stable, wbc down, clinically improved -regular diet -ok for discharge -outpatient colonoscopy in 6-8 weeks
[2017-09-21] MEDS: Lactobacillus Acidophilus 500 MU Cap PO SCH (08:26)
[2017-09-21] MEDS: Ciprofloxacin 400mg/200ml D5W 400 MG/200 ML BAG IVPB SCH (08:26)
--- NOTE | 2017-09-21 10:21 | CP.PCM.DIS ---
Provider - Provider Date of Admission: 09/19/17 17:22 Attending physician: Gabriella Douglass MD Time Spent in preparation of Discharge (in minutes): 30 Hospital Course - Lab Results Lab Results: Micro Results 09/20/17 14:53 Stool Ova and Parasite Concentrate Exam - Final Most Recent Lab Values WBC 7.4 K/uL (4.8-10.8) 09/21/17 07:08 RBC 3.58 Mil/uL (4.40-5.90) L 09/21/17 07:08 Hgb 11.1 g/dL (12.0-18.0) L 09/21/17 07:08 Hct 32.2 % (35.0-51.0) L 09/21/17 07:08 MCV 89.8 fl (80.0-94.0) 09/21/17 07:08 MCH 31.1 pg (27.0-31.0) H 09/21/17 07:08 MCHC 34.6 g/dL (33.0-37.0) 09/21/17 07:08 RDW 14.5 % (11.5-14.5) 09/21/17 07:08 Plt Count 192 K/uL (130-400) 09/21/17 07:08 MPV 8.0 fl (7.2-11.7) 09/20/17 16:17 Neut % (Auto) 68.0 % (50.0-75.0) 09/20/17 16:17 Lymph % (Auto) 24.2 % (20.0-40.0) 09/20/17 16:17 Early % (Auto) 7.2 % (0.0-10.0) 09/20/17 16:17 Eos % (Auto) 0.1 % (0.0-4.0) 09/20/17 16:17 Baso % (Auto) 0.5 % (0.0-2.0) 09/20/17 16:17 Neut # 7.2 K/uL (1.8-7.0) H 09/20/17 16:17 Lymph # 2.6 K/uL (1.0-4.3) 09/20/17 16:17 Early # 0.8 K/uL (0.0-0.8) 09/20/17 16:17 Eos # 0.0 K/uL (0.0-0.7) 09/20/17 16:17 Baso # 0.1 K/uL (0.0-0.2) 09/20/17 16:17 Neutrophils % (Manual) 84 % (42-75) H 09/19/17 13:37 Lymphocytes % (Manual) 12 % (20-50) L 09/19/17 13:37 Monocytes % (Manual) 4 % (0-10) 09/19/17 13:37 Platelet Estimate Normal (NORMAL) 09/19/17 13:37 Large Platelets Present 09/19/17 13:37 Poikilocytosis (manual Slight 09/19/17 13:37 Anisocytosis (manual) Slight 09/19/17 13:37 Microcytosis (manual) Slight 09/19/17 13:37 Ovalocytes Slight 09/19/17 13:37 [place] Cells Slight 09/19/17 13:37 PT 12.8 Seconds (9.8-13.1) 09/19/17 13:37 INR 1.2 (0.9-1.2) 09/19/17 13:37 APTT 28.1 Seconds (25.6-37.1) 09/19/17 13:37 Sodium 142 mmol/l (132-148) 09/21/17 07:08 Potassium 4.4 MMOL/L (3.6-5.0) 09/21/17 07:08 Chloride 109 mmol/L (98-107) H 09/21/17 07:08 Carbon Dioxide 26 mmol/L (22-30) 09/21/17 07:08 Anion Gap 11 (10-20) 09/21/17 07:08 BUN 15 mg/dl (9-20) 09/21/17 07:08 Creatinine 1.0 mg/dl (0.8-1.5) 09/21/17 07:08 Est GFR ( Amer) > 60 09/21/17 07:08 Est GFR (Non-Af Amer) > 60 09/21/17 07:08 Random Glucose 89 mg/dL (75-110) 09/21/17 07:08 Calcium 8.8 mg/dL (8.4-10.2) 09/21/17 07:08 Total Bilirubin 1.0 mg/dl (0.2-1.3) 09/21/17 07:08 AST 22 U/L (17-59) 09/21/17 07:08 ALT 35 U/L (21-72) 09/21/17 07:08 Alkaline Phosphatase 40 U/L (38-126) 09/21/17 07:08 Total Protein 6.0 G/DL (6.3-8.2) L 09/21/17 07:08 Albumin 3.2 g/dL (3.5-5.0) L D 09/21/17 07:08 Globulin 2.7 gm/dL (2.2-3.9) 09/21/17 07:08 Albumin/Globulin Ratio 1.2 (1.0-2.1) 09/21/17 07:08 Stool Occult Blood Positive (NEGATIVE) H 09/19/17 13:43 Stool Leukocytes, Qual Negative (NEGATIVE) 09/20/17 14:53 C. difficile Ag & Toxin Negative (NEGATIVE) 09/20/17 14:53 Blood Type O POSITIVE 09/19/17 13:37 Antibody Screen Negative 09/19/17 13:37 Crossmatch See Detail 09/19/17 13:37 BBK History Checked No verified bt 09/19/17 13:37 - Hospital Course Hospital Course: 67 y/o M admitted due to acute colitis seen on CT, tarry stools, possible GI bleed. Tranfused 1 unit prbc during admission, abx for colitis, evaluated by GI for endoscopy as outpatient. Stable to [place] home today. Denies dizziness, cp, sob, vision changes, focal weakness. No more tarry stools overnight or this AM. Tolerating PO without difficulty. take medications as directed, scripts printed for patient ( see med rec below) new medication: Omeprazole 40 mg daily given x 1 month restart all home medications follow ith PMD in 2-3 days GI appt for colonoscopy/endoscopy in 2 weeks ER precautions given Discharge Exam - Head Exam Head Exam: ATRAUMATIC, NORMOCEPHALIC - Eye Exam Eye Exam: EOMI - ENT Exam ENT Exam: Mucous Membranes Moist - Respiratory Exam Respiratory Exam: Clear to PA & Lateral - Cardiovascular Exam Cardiovascular Exam: +S1, +S2 - GI/Abdominal Exam GI & Abdominal Exam: Normal Bowel Sounds, Soft. absent: Tenderness - Extremities Exam Extremities exam: normal inspection - Neurological Exam Neurological exam: Alert, Oriented x3 - Psychiatric Exam Psychiatric exam: Normal Affect, Normal Mood - Skin Skin Exam: Dry, Normal Color, Warm Discharge Plan - Discharge Medications Prescriptions: Aspirin [Ecotrin] 81 mg PO DAILY #30 tabec Atorvastatin [Lipitor] 10 mg PO HS #30 tab Ciprofloxacin [Cipro] 500 mg PO BID 5 Days tab Lisinopril [Zestril] 10 mg PO DAILY #30 tablet metroNIDAZOLE [Flagyl] 500 mg PO Q8 5 Days tab Omeprazole 40 mg PO DAILY #30 capsule.dr - Follow Up Plan Condition: STABLE Disposition: HOME/ ROUTINE
[2017-09-21 11:48] VITALS: BP 115/61; PULSE 99; RESP 23; TEMP 98.6; O2SAT 98
--- NOTE | 2017-09-22 08:58 | PN ---
DATE: CRITICAL CARE PROGRESS NOTE LOCATION: Patient in ICU, bed 430. TIME SPENT: 35 minutes. SUBJECTIVE: Patient is seen and evaluated at the bedside. Events since admission noted. Past medical, surgical, and social history reviewed. Mr. Caballero is a 67-year-old male, a known smoker, occasional EtOH abuse, with history significant for hypertension and hyperlipidemia; on aspirin, atorvastatin, and lisinopril at home. Patient reportedly takes aspirin 325 mg two to three times a week in addition to aspirin 81 mg for headache. He was admitted through emergency room on 09/19 complaining of abdominal pain associated with dark stool. CT of the abdomen obtained showed rectosigmoid inflammation. Patient was started on IV antibiotics and IV hydration. This morning, patient was noted to have lightheaded and apparently felt dizzy on getting up from bed. [employer] was called. Patient was subsequently transferred to ICU for further evaluation. Noted to have a drop in his hemoglobin from baseline. PAST MEDICAL HISTORY: As noted above. PAST SURGICAL HISTORY: Unremarkable. SOCIAL HISTORY: As noted above. MEDICATIONS: Noted. PHYSICAL EXAMINATION: GENERAL: Middle-aged male oriented to name, place, and time. No distress noted. VITAL SIGNS: Temperature 98.4, heart rate 107, blood pressure 126/74, mean arterial pressure 91, respiratory rate 27, oxygen saturation 100%. Intake 960, output not documented. Had one bowel movement today. HEAD, EYES, EARS, NOSE AND THROAT: Pupils reactive. Conjunctivae pale. Sclerae are white. NECK: Supple. Trachea central. CHEST: Bilateral breath sounds, diminished in intensity. HEART: Rhythm regular. S1, S2 normal. No audible murmur. ABDOMEN: Bowel sounds present. Soft. Liver and spleen not palpable. Bladder not distended. EXTREMITIES: Unremarkable. DP palpable. SKIN: Without rash. NEUROLOGICAL: Nonfocal. CURRENT MEDICATIONS: IV fluid with 20 of KCl at 125 mL/hour, Protonix 40 IV q. 12, Flagyl 500 mg IV q. 8, Cipro 400 IV q. 12, Zestril at 10 mg p.o. daily, lactobacillus 1 capsule twice daily, Lipitor 10 mg p.o. at nighttime. LABORATORY DATA: Microbiology: Nothing reported. WBC 12, hemoglobin 10.8, hematocrit 31.1, platelet count 235. PT 12.8, INR 1.2, PTT 28.1. SMA-7: Sodium 139, potassium 3.5, chloride of 106, CO2 of 24, blood urea nitrogen 31, creatinine 0.9, calcium 8.2. Stool occult blood positive. IMPRESSION: 1. GI: Admitted with abdominal pain and dark stool in the rectum. CT abdomen consistent with rectosigmoid colitis, on IV antibiotics, Cipro and Flagyl. GI consult pending. 2. Pulmonary: No acute issues noted. 3. Cardiac: History of hypertension, currently controlled on lisinopril. Tachycardia secondary to dehydration. Closely monitor. 4. Renal: No acute issues. 5. Hematology: Anemia, drop in hemoglobin from baseline. Noted to have guaiac-positive stool and clinical history of dark bowel movement. Decline in hemoglobin either due to GI bleeding and/or due to hemodilution from hydration. Continue to monitor closely. See evaluation by PMD. Recommended a unit of packed red blood cells. 6. Fluids, electrolytes, and nutrition: No acute issues noted. Hold deep venous thrombosis prophylaxis with anticoagulation given GI bleeding. Continue sequential compression devices. Quirino Shelby MD
== END 2017-09-21 13:09 | disposition home or self-care (01) | DRG 386 ==
LOC: H.ER 12:49 → H.ERHOLD 17:22 → H.MEDSURG1 20:57 → H.ICU/CCU 09-20 10:20
PROVIDERS: ADMIT Family Medicine Geriatric Medicine; ATTEND Family Medicine Geriatric Medicine
PROC: 30233N1 Transfusion of Nonautologous Red Blood Cells into Peripheral Vein, Percutaneous Approach (ICD-10-PCS; principal; 2017-09-20)
DX: K51.50 Left sided colitis without complications (principal); D62 Acute posthemorrhagic anemia; E78.00 Pure hypercholesterolemia, unspecified; E86.0 Dehydration; I10 Essential (primary) hypertension; E78.5 Hyperlipidemia, unspecified; F17.200 Nicotine dependence, unspecified, uncomplicated; K21.9 Gastro-esophageal reflux disease without esophagitis